=== PATIENT | female | born 1975 | race American Indian/Alaskan Native ===

== ENCOUNTER 2018-12-17 16:43 | Emergency (ER) | payer MEDICAID, OTHER ==
[2018-12-17 16:43] VITALS: BMI 26.6
[2018-12-17 17:05] VITALS: TEMP 98.6
[2018-12-17] MEDS ORDERED: guaiFENesin 200 mg/10 ml Syrup UD PO ONE (18:04)
--- NOTE | 2018-12-17 18:51 | ED PDOC ---
Arrival/HPI - General Chief Complaint: Cough, Cold, Congestion Time Seen by Provider: 12/17/18 17:48 Historian: Patient - History of Present Illness Narrative History of Present Illness (Text): 12/17/18 18:48 43-year-old female with past medical history of hypertension, reports 5-day history of flulike symptoms with cough cold congestion and a headache that started today. Patient also reports feeling nauseous, states that she felt too nauseous today to take her blood pressure medicine since by her blood pressure is elevated in the ER. States that she for her blood pressure she takes amlodipine 10 mg however she has not taken it yet today. Otherwise reports no chest pain, shortness of breath, vomiting, abdominal pain, diarrhea, urinary symptoms, travel, sick contacts. PMD [place] Past Medical History - Infectious Disease Hx of Infectious Diseases: None - Tetanus Immunization Tetanus Immunization: Unknown - Reproductive Menopause: No - Cardiac Hx Hypertension: Yes - Pulmonary Hx Respiratory Disorders: No - Neurological Hx Neurological Disorder: No - HEENT Hx HEENT Disorder: Yes ('LOOSING VOICE X YEARS') - Renal Hx Renal Disorder: No - Endocrine/Metabolic Hx Endocrine Disorders: No - Hematological/Oncological Hx Blood Disorders: No - Integumentary Hx Dermatological Disorder: No - Musculoskeletal/Rheumatological Hx Musculoskeletal Disorders: No - Gastrointestinal Hx Gastrointestinal Disorders: No - Genitourinary/Gynecological Hx Genitourinary Disorders: Yes Other/Comment: RT CYST REMOVED - Psychiatric Hx Depression: Yes Hx Substance Use: No - Surgical History Hx Orthopedic Surgery: Yes (LT KNEE SURGERY) - Anesthesia Hx Anesthesia: Yes Hx Anesthesia Reactions: No Hx Malignant Hyperthermia: No - Suicidal Assessment Feels Threatened In Home Enviroment: No Family/Social History Family/Social History: No Known Family HX Smoking Status: Never Smoked Hx Alcohol Use: Yes Hx Substance Use: No Hx Substance Use Treatment: No Allergies/Home Meds Allergies/Adverse Reactions: Allergies No Known Allergies Allergy (Verified 02/02/17 21:40) Home Medications: Home Meds Medication Instructions Recorded Confirmed amLODIPine [Norvasc] 10 mg PO DAILY 12/17/18 12/17/18 Review of Systems - Review of Systems Constitutional: Fatigue, Fevers ENT: Rhinorrhea, Sinus Congestion. absent: Sore Throat Respiratory: Cough. absent: SOB Cardiovascular: absent: Chest Pain, Palpitations Gastrointestinal: Nausea. absent: Abdominal Pain, Diarrhea, Vomiting Genitourinary Female: absent: Dysuria, Frequency Musculoskeletal: Arthralgias. absent: Back Pain, Neck Pain Skin: absent: Rash, Pruritis, Skin Lesions Neurological: Headache. absent: Dizziness Physical Exam Vital Signs Temp Pulse Resp BP Pulse Ox 12/17/18 17:00 98.6 F 92 H 20 170/122 H 98 Temperature: Afebrile Blood Pressure: Normal Pulse: Regular Respiratory Rate: Normal Appearance: Positive for: Well-Appearing, Non-Toxic, Comfortable Pain Distress: Mild Mental Status: Positive for: Alert and Oriented X 3 - Systems Exam Head: Present: Atraumatic, Normocephalic Pupils: Present: PERRL Extroacular Muscles: Present: EOMI Conjunctiva: Present: Normal Ears: Present: Normal, NORMAL TM, Normal Canal. No: Erythema Mouth: Present: Moist Mucous Membranes Pharnyx: Present: Normal. No: ERYTHEMA, EXUDATE Neck: Present: Normal Range of Motion. No: Meningeal Signs, Lymphadenopathy Respiratory/Chest: Present: Clear to Auscultation, Good Air Exchange. No: Respi ratory Distress, Accessory Muscle Use Cardiovascular: Present: Regular Rate and Rhythm, Normal S1, S2. No: Murmurs Abdomen: No: Tenderness, Distention, Peritoneal Signs Back: Present: Normal Inspection Upper Extremity: Present: Normal Inspection. No: Cyanosis, Edema Lower Extremity: Present: Normal Inspection. No: Edema Neurological: Present: GCS=15, CN II-XII Intact, Speech Normal Skin: Present: Warm, Dry, Normal Color. No: Rashes Psychiatric: Present: Alert, Oriented x 3, Normal Insight, Normal Concentration Medical Decision Making ED Course and Treatment: 12/17/18 18:51 Plan : - Rapid flu - tylenol PO - zofran PO - guiafenesin PO - norvasc PO Rapid flu : (-) CXR : NAD. On reevaluation, patient reports improvement of symptoms, denies any headache, CP or SOB, states that she is hungry and wants to eat. On exam, patient remains awake alert and oriented 3 in no acute distress. Results d/w the patient. Diagnosis of viral illness d/w the patient. Patient tolerating po fluids in the ER. Advised to follow up with primary care physician in 1-2 days without fail. Advised to take medication as prescribed. Return to the emergency room at any time for any new or worsening symptoms. Patient states she fully agrees with and understands discharge instructions. States that she agrees with the plan and disposition. Verbalized and repeated discharge instructions and plan. I have given the patient opportunity to ask any additional questions. - Medication Orders Current Medication Orders: Discontinued Medications Acetaminophen (Tylenol 325mg Tab) 975 mg PO STAT STA Stop: 12/17/18 18:05 Last Admin: 12/17/18 18:11 Dose: 975 mg MAR Pain/Vitals Document 12/17/18 18:11 BEHZAD (Rec: 12/17/18 18:12 [facility] [id number] Pain Reassessment Is This A Pain ReAssessment? Yes Presence of Pain Presence of Pain Yes Pain Scale Used Protocol: PSCALES Pain Scale Used Numeric Location Pain Location Body Site Generalized Intensity 4 Scale Used Numeric Guaifenesin (Robitussin) 200 mg PO ONCE ONE Stop: 12/17/18 18:05 Last Admin: 12/17/18 18:10 Dose: 200 mg Ondansetron HCl (Zofran Odt) 4 mg PO STAT STA Stop: 12/17/18 18:05 Last Admin: 12/17/18 18:11 Dose: 4 mg - PA / PRODUCTION OFFICER / Resident Statement MD/DO has reviewed & agrees with the documentation as recorded. Disposition/Present on Arrival - Present on Arrival Any Indicators Present on Arrival: No History of DVT/PE: No History of Uncontrolled Diabetes: No Urinary Catheter: No History of Decub. Ulcer: No History Surgical Site Infection Following: None - Disposition Have Diagnosis and Disposition been Completed?: Yes Diagnosis: Viral illness, Cough Disposition: HOME/ ROUTINE Disposition Time: 20:00 Patient Plan: Discharge Condition: STABLE Discharge Instructions (ExitCare): Cough, Adult (DC), Viral Syndrome (DC) Additional Instructions: Thank you for letting us take care of you today. You were treated for cough, viral illness. The emergency medical care you received today was directed at your acute symptoms. If you were prescribed any medication, please fill it and take as directed. It may take several days for your symptoms to resolve. Return to the Emergency Department if your symptoms worsen, do not improve, or if you have any other problems. Please contact your doctor in 2 days for re-evaluation and follow up. Bring any paperwork you were given at discharge with you along with any medications you are taking to your follow up visit. Our treatment cannot replace ongoing medical care by a primary care provider (PCP) outside of the emergency department. Thank you for allowing the [facility] team to be part of your care today. If you had an X-Ray : A Radiologist will review the ED reading if any change in treatment is needed we will contact you. Prescriptions: Guaifenesin 400 mg PO QID #20 tablet Ondansetron ODT [Zofran ODT] 4 mg PO DAILY PRN #20 odt PRN Reason: Nausea/Vomiting Referrals: Jose Morejon MD [Primary Care Provider] - Follow up with primary Forms: [facility] (Greek), WORK NOTE
[2018-12-17 19:29] VITALS: RESP 18; O2SAT 100
[2018-12-17 20:15] VITALS: BP 162/106; PULSE 77
--- NOTE | 2018-12-18 08:30 | RAD ---
HISTORY: cough COMPARISON: No prior. TECHNIQUE: Chest PA and lateral FINDINGS: LUNGS: No focal consolidation. Please note that chest x-ray has limited sensitivity for the detection of pulmonary masses. PLEURA: No significant pleural effusion identified. No definite pneumothorax . CARDIOVASCULAR: Heart size appears normal limits. Ectatic aorta. OSSEOUS STRUCTURES: No acute osseous abnormality identified. VISUALIZED UPPER ABDOMEN: Unremarkable. OTHER FINDINGS: None. IMPRESSION: No focal consolidation.
== END 2018-12-17 20:26 | disposition home or self-care (01) ==
LOC: ED 16:43
DX: B34.9 Viral infection, unspecified (principal); I10 Essential (primary) hypertension